=== PATIENT | male | born 1980 | race Caucasian/White ===

== ENCOUNTER 2017-11-08 19:34 | Emergency (ER) | payer SELFPAY ==
[2017-11-08 19:41] VITALS: BP 149/93
--- NOTE | 2017-11-08 19:58 | EDPHY ---
H & P Time Seen by Provider: 11/08/17 19:49 HPI/ROS: CHIEF COMPLAINT: "I ran out of Suboxone" HISTORY OF PRESENT ILLNESS: 37-year-old male visiting from [place], in town to help family member, returning in 9 days, states that he ran out of Suboxone 3 days ago. He called his pain management doctor in [place] however they are unable to call in a prescription. They recommend he come to the ER. He is complaining of gastrointestinal discomfort, diarrhea, anxiety, insomnia. PHYSICAL EXAM (Prior to examination, patient consented to physical exam, hands were washed and my usual and customary physical exam procedures followed) 1) GENERAL: Well-developed, well-nourished, alert and oriented. Appears anxious s. 2) HEAD: Normocephalic 3) HEENT: sclera anicteric 4) LUNGS: Breathing comfortably. 5) SKIN: Colin erection noted Smoking Status: Heavy smoker Constitutional: Initial Vital Signs Temperature (C) 37.1 C 11/08/17 19:38 Heart Rate 88 11/08/17 19:38 Respiratory Rate 17 11/08/17 19:38 Blood Pressure 149/93 H 11/08/17 19:38 O2 Sat (%) 98 11/08/17 19:38 O2 Delivery Mode Room Air Allergies/Adverse Reactions: No Known Allergies Allergy (Unverified 11/08/17 19:40) Home Medications: Medication Instructions Recorded clonIDINE [Catapres (*)] 0.1 mg PO Q6 PRN #15 tab 11/08/17 MDM/Departure - [facility] ED Course/Re-evaluation: Explained the patient we are unable to prescribe Suboxone from the ER. I prescribed him clonidine.. Today is Thursday. Recommend he contact his [employer] in [place] tomorrow. Return to the ER if you develop new or worsening symptoms. He feels comfortable being discharged. Care of patient under supervision of secondary supervising physician Dr Hernandez. - Depart Disposition: Home, Routine, Self-Care Clinical Impression: Opiate withdrawal Condition: Good Instructions: Narcotic Abuse (ED) Additional Instructions: Contact your [employer] in [place] tomorrow (Thursday). Return to the ER if you develop new or worsening symptoms. Prescriptions: clonIDINE [Catapres (*)] 0.1 mg PO Q6 PRN #15 tab PRN Reason: Anxiety Referrals: Call, your painter [employer] tomorrow [Other] - As per Instructions
== END 2017-11-08 20:42 | disposition home or self-care (01) ==
DX: F11.23 Opioid dependence with withdrawal (principal); F17.200 Nicotine dependence, unspecified, uncomplicated